=== PATIENT | female | born 1955 | race Caucasian/White ===

== ENCOUNTER 2019-02-04 21:39 | Emergency (ER) | payer MEDICAID, OTHER ==
[~2019-02-04] VITALS: Ht 121.9 cm; Wt 69.4 kg
[~2019-02-04 21:39] MED LIST: SIMV20TA2 PO; [UNRECOGNIZED DRUG - REMARK]
[2019-02-04 21:46] VITALS: BP 208/126; PULSE 106; RESP 18; Ht 121.9 cm; Wt 69.4 kg
== END 2019-02-05 01:37 | disposition left against medical advice (07) ==
LOC: E/R 21:39
DX: Z53.21 Procedure and treatment not carried out due to patient leaving prior to being seen by health care provider (principal)